=== PATIENT | female | born 1990 | race Caucasian/White ===

== ENCOUNTER 2020-03-07 08:05 | Emergency (ER) | payer OTHER, SELFPAY ==
[2020-03-07 08:15] VITALS: BP 109/62; PULSE 89; RESP 18; TEMP 37.7; O2SAT 99
--- NOTE | 2020-03-07 08:22 | ED.FEMALEGU ---
HPI - Female Genitourinary General Chief complaint: Urogenital-Female Stated complaint: Poss uti Source: patient Mode of arrival: ambulatory Limitations: no limitations History of Present Illness HPI Narrative: Patient is a 29-year-old female who presents complaining of lower back pain, dysuria and frequency x1 day. She reports symptoms starting yesterday morning and have increased today. Patient reports a past medical history of frequent UTI, last UTI approximately 3 months ago. Patient also feels as if she may have yeast infection . Denies risks of STDs. Patient denies taking over the counter medications for symptom relief at this time. elicited complaint: UTI Related Data Home Medications Medication Instructions Recorded Confirmed citalopram 40 mg PO DAILY 03/07/20 03/07/20 Allergies Allergy/AdvReac Type Severity Reaction Status Date / Time No Known Allergies Allergy Verified 03/07/20 08:19 Review of Systems Review of Systems: Narrative: CONSTITUTIONAL: Denies fever, chills, or sweats. EYES: Denies visual changes, redness, or discharge. ENT: Denies rhinorrhea, congestion, sore throat, or otalgia. CARDIOVASCULAR: Denies chest pain, palpitations, or edema. RESPIRATORY: Denies cough or dyspnea. GASTROINTESTINAL: Denies abdominal pain, nausea, vomiting, or diarrhea. GENITOURINARY: Reports dysuria and lower back pain SKIN: Denies rash or itching. MUSCULOSKELETAL: Denies back pain, joint pain, or myalgia. NEUROLOGIC: Denies headache, numbness, dizziness, or weakness. PSYCHIATRIC: Denies anxiety or depression. [facility] Past Medical History Medical History (Updated 03/07/20 @ 08:39 by DARWIN Martinez) Depression UTI (urinary tract infection) Surgical History Surgical History (Updated 03/07/20 @ 08:23 by DARWIN Martinez) No significant past surgical history Family History Family History (Updated 03/07/20 @ 08:28 by DARWIN Martinez) Father Diabetes mellitus Social History Social History (Updated 03/07/20 @ 08:24 by DARWIN Martinez) Smoking status: Never smoker Alcohol intake: never Substance use: never Living arrangements: with family Occupation/Education: occupation Gender identity (if verbalized by the patient): Female Comments At the time of signature, I have reviewed and agree with nursing past medical, surgical, social, and family history unless otherwise noted. Please see nursing chart for further information. There is no relevant family history pertinent to the presenting complaint. Exam Narrative: Exam Narrative: GENERAL: Well-appearing, well-nourished, and in no acute distress. HEAD: Normocephalic, atraumatic. EYES: No redness or drainage. ENT: Mucous membranes pink and moist. CHEST: No respiratory distress. EXTREMITIES: Normal range of motion. SKIN: Warm, dry, no rash. NEURO: No focal deficits. Alert and oriented x3. Gait steady. PSYCH: Normal affect. No signs of depression or anxiety. Course Vital Signs Vital signs: Vital Signs Temperature 37.7 C H 03/07/20 08:15 Pulse Rate 89 03/07/20 08:15 Respiratory Rate 18 03/07/20 08:15 Blood Pressure 109/62 03/07/20 08:15 Pulse Oximetry 99 03/07/20 08:15 Temperature 37.7 C H 03/07/20 08:15 Pulse Rate 89 03/07/20 08:15 Respiratory Rate 18 03/07/20 08:15 Blood Pressure 109/62 03/07/20 08:15 Pulse Oximetry 99 03/07/20 08:15 Reviewed MDM - Female Genitourinary MDM Narrative Medical decision making narrative: Patient's urine shows blood, leukocytes and nitrates. Patient to be treated for UTI at this time. Discussed with patient urine culture to be sent. Patient is stable for discharge to home with outpatient follow-up care. Differential Diagnosis Differential diagnosis: Likely urinary tract infection, vaginitis and cystitis Medical Records Attestation: I reviewed the patient's medical records. Lab Data Attestation: I reviewed the patient's lab results.
== END 2020-03-07 08:50 | disposition home or self-care (01) ==
PROVIDERS: Emergency Provider Nurse Practitioner; PCP Nurse Practitioner Family
DX: N39.0 Urinary tract infection, site not specified (principal); F32.9 Major depressive disorder, single episode, unspecified
CPT/HCPCS: 81003; 87077; 87086; 87088; 87186; 99213; G0463

== ENCOUNTER 2021-02-19 17:06 | Emergency (ER) | payer OTHER, SELFPAY ==
[2021-02-19 17:13] VITALS: BP 111/71; PULSE 92; RESP 14; TEMP 36.6; O2SAT 99
--- NOTE | 2021-02-19 17:47 | ED.FEMALEGU ---
HPI - Female Genitourinary General Chief complaint: Urogenital-Female Stated complaint: POS UTI Time Seen by Provider: 02/19/21 17:43 Source: patient and RN notes reviewed Mode of arrival: ambulatory Limitations: no limitations History of Present Illness HPI Narrative: Patient presents today complaining of dysuria, hematuria, frequency, low back pain, and suprapubic pain since yesterday morning. She has been taking Tylenol with some relief. Denies fever. MD elicited complaint: UTI Related Data Home Medications Medication Instructions Recorded Confirmed citalopram 40 mg PO DAILY 03/07/20 02/19/21 Allergies Allergy/AdvReac Type Severity Reaction Status Date / Time No Known Allergies Allergy Verified 02/19/21 17:32 Review of Systems Review of Systems: CONSTITUTIONAL: Denies body aches, fever, chills, or sweats. EYES: Denies visual changes, redness, or discharge. ENT: Denies rhinorrhea, congestion, sore throat, or otalgia. CARDIOVASCULAR: Denies chest pain, palpitations, or edema. RESPIRATORY: Denies cough or dyspnea. GASTROINTESTINAL: Denies abdominal pain, nausea, vomiting, or diarrhea.+Suprapubic pain GENITOURINARY: +Dysuria, hematuria, frequency SKIN: Denies rash, itching, or wounds. MUSCULOSKELETAL: Denies joint pain, or myalgia.+Back pain NEUROLOGIC: Denies headache, numbness, tingling, or weakness. PSYCH: Denies depression or anxiety. [facility] Past Medical History Medical History Depression UTI (urinary tract infection) Surgical History Surgical History No significant past surgical history Family History Family History Father Diabetes mellitus Social History Social History Smoking status: Never smoker Alcohol intake: never Substance use: never Gender identity (if verbalized by the patient): Female Comments At time of signature, I have reviewed and agree with nursing past medical, surgical, social and family history unless otherwise noted. Please see nursing chart for further information. There is no relevant family history pertinent to the presenting complaint Exam Narrative: GENERAL: Well-appearing, well-nourished, and in no acute distress. HEAD: Normocephalic, atraumatic. EYES: EOMI. No redness or drainage. Conjunctivae normal. ENT: Mucous membranes pink and moist. NECK: Normal AROM. CHEST: No respiratory distress. Clear to auscultation. HEART: Regular rate and rhythm. No murmur appreciated. Normal peripheral pulses. ABDOMEN: Soft, nontender, nondistended, normal active bowel sounds. -CVAT MUSCULOSKELETAL: No bony tenderness. EXTREMITIES: Normal range of motion. No edema. SKIN: Warm, dry, no rash. Capillary refill normal. Normal skin turgor. NEURO: No focal deficits. Alert and oriented x3. Gait steady. PSYCH: Normal affect. No signs of depression or anxiety. Course Vital Signs Vital signs: Vital Signs Temperature 98 F 02/19/21 17:13 Pulse Rate 92 02/19/21 17:13 Respiratory Rate 14 02/19/21 17:13 Blood Pressure 111/71 02/19/21 17:13 Pulse Oximetry 99 02/19/21 17:13 Temperature 98 F 02/19/21 17:13 Pulse Rate 92 02/19/21 17:13 Respiratory Rate 14 02/19/21 17:13 Blood Pressure 111/71 02/19/21 17:13 Pulse Oximetry 99 02/19/21 17:13 Reviewed MDM - Female Genitourinary Differential Diagnosis Differential diagnosis: Likely urinary tract infection, vaginitis, cystitis and other (Pyelonephritis, interstitial cystitis) Lab Data Attestation: I reviewed the patient's lab results. Labs: Urine Glucose Negative Reference Range: Negative Urine Bilirubin Negative Reference Ra
== END 2021-02-19 17:55 | disposition home or self-care (01) ==
PROVIDERS: Emergency Provider Nurse Practitioner; PCP Nurse Practitioner Family
DX: N30.01 Acute cystitis with hematuria (principal); F32.9 Major depressive disorder, single episode, unspecified
CPT/HCPCS: 81003; 87077; 87086; 87088; 87186; 99213; G0463

== ENCOUNTER 2021-10-31 08:15 | Emergency (ER) | payer OTHER, SELFPAY ==
[2021-10-31 08:30] VITALS: BP 100/66; PULSE 85; RESP 14; TEMP 37.3; O2SAT 100
--- NOTE | 2021-10-31 08:52 | ED.FEMALEGU ---
HPI - Female Genitourinary General Chief complaint: Urogenital-Female Stated complaint: possible uti Time Seen by Provider: 10/31/21 08:38 Source: patient, RN notes reviewed and old records reviewed Mode of arrival: ambulatory Limitations: no limitations History of Present Illness HPI Narrative: 31-year-old female who presents to [facility] care with complaints of urinary symptoms of burning with urination and voiding small amounts and some urethral pressure since yesterday. Patient reports she has had past urinary tract infection with similar symptoms. Patient reports she has been taking some ibuprofen for her discomfort. Patient denies any nausea or vomiting denies any acute fevers chills or sweats denies any concern for STDs. MD elicited complaint: dysuria and UTI Pertinent past history: other (Has had previous UTI) Onset (ago): day(s) (Day 2 of symptoms) Severity scale (1-10): 8 Quality of pain: burning and other (Perineal pressure also) Related Data Home Medications Medication Instructions Recorded Confirmed citalopram 40 mg tablet 40 mg PO DAILY 03/07/20 10/31/21 Allergies Allergy/AdvReac Type Severity Reaction Status Date / Time No Known Allergies Allergy Verified 02/19/21 17:32 Review of Systems Review of Systems: CONSTITUTIONAL: Denies fever, chills, or sweats. EYES: Denies visual changes, redness, or discharge. ENT: Denies rhinorrhea, congestion, sore throat, or otalgia. CARDIOVASCULAR: Denies chest pain, palpitations, or edema. RESPIRATORY: Denies cough or dyspnea. GASTROINTESTINAL: Denies abdominal pain, nausea, vomiting, or diarrhea. GENITOURINARY: Positive dysuria no visible hematuria,perineal pressure SKIN: Denies rash or itching. MUSCULOSKELETAL: Positive right lower back pain, no joint pain, or myalgia. NEUROLOGIC: Denies headache, numbness, or weakness. PSYCHIATRIC: Positive history anxiety or depression. All systems reviewed & are unremarkable except as noted in HPI and below PMFSH Past Medical History Medical History (Updated 10/31/21 @ 09:09 by Shanae Tobias NP) Depression UTI (urinary tract infection) Surgical History Surgical History (Updated 10/31/21 @ 09:09 by Shanae Tobias NP) Hx of breast augmentation Family History Family History Father Diabetes mellitus Social History Social History Smoking status: Never smoker Alcohol intake: never Substance use: never Gender identity (if verbalized by the patient): Female Comments At time of signature, agree with nursing past medical, surgical, social and family history. There is no relevant family history pertinent to the presenting complaint Exam Narrative: GENERAL: Well-appearing, well-nourished, and in no acute distress. HEAD: Normocephalic, atraumatic. EYES: PERRLA and EOMI. ENT: Nares clear, no rhinorrhea or epistaxis. Mucous membranes moist. TMs normal with good light reflex, throat pink with no lesions or exudates no tonsillar swelling some postnasal drainage NECK: Supple. No lymphadenopathy CHEST: Clear to auscultation. No respiratory distress. SaO2 100% on room air HEART: Regular rate and rhythm. No murmur heard. Normal peripheral pulses. ABDOMEN: Soft, nontender, nondistended, normal active bowel sounds. Reports some perineal pressure with burning with urination denies nausea, vomiting, or diarrhea EXTREMITIES: Normal range of motion. No edema. States some mild right lower back pain which radiates down right leg intermittently, denies any CVA tenderness SKIN: Warm, dry, no rash. NEURO: No focal deficits. Alert and oriented x3. Course Course Level of Care: Express Care Visit Vital Signs Vital signs: Vital Signs Temperature 37.3 C 10/31/21 08:30 Pulse Rate 85 10/31/21 08:30 Respiratory Rate 14 10/31/21 08:30 Blood Pressure 100/66 10/31/21 08:30 Pulse Oximetry 100
== END 2021-10-31 09:26 | disposition home or self-care (01) ==
PROVIDERS: Emergency Provider Registered Nurse; PCP Nurse Practitioner Family
DX: N39.0 Urinary tract infection, site not specified (principal); F32.A Depression, unspecified
CPT/HCPCS: 81003; 87086; 99213; G0463